=== PATIENT | male | born 1940 | race Hispanic/Latino ===

== ENCOUNTER 2017-09-27 16:46 | Inpatient (IN) | payer MEDICARE, OTHER ==
[~2017-09-27] VITALS: Ht 188 cm; Wt 106.8 kg
[~2017-09-27 16:46] MED LIST: ALBU6.7H IH; ASPI-1181 PO; CARB25DR OU; CARV6.25 PO; ERGOCALCIFEROL PO; ETOD300C13 PO; FLUTICASONE NASAL; FURO40TA5 PO; GABA-531 PO; HYDR-4068 PO; LISI2.5T2 PO; MONT10TA24 PO; MVIT PO; OMEP20CA10 PO; POLY17PO4 PO; PRAV80TA21 PO; PRED20TA3 PO; SPRIVA IH
[2017-09-27 17:22] LABS: BASOPHILS % (AUTO) 0.8 % (0.0-5.0); EOSINOPHILS % (AUTO) 5.9 % (0.0-8.0); HEMATOCRIT 37.2 % (42-54); LYMPHOCYTES % (AUTO) 17.5 % (21.0-51.0); MEAN CORPUSCULAR HEMOGLOBIN 31.2 pg (27.0-33.0); MEAN CORPUSCULAR HGB CONC 34.5 g/dL (32.0-36.0); MEAN CORPUSCULAR VOLUME 90.4 fL (79-99); MONOCYTES % (AUTO) 10.2 % (3.0-13.0); NEUTROPHILS % (AUTO) 65.6 % (40.0-77.0); NUCLEATED RED BLOOD CELLS 0.1 % (0.0-0.19); PLATELET COUNT (AUTO) 170 K/uL (130-400); RED BLOOD CELL COUNT(AUTO) 4.11 MIL/uL (4.50-6.20); RED CELL DISTRIBUTION WIDTH 14.7 % (11.0-15.5)
[2017-09-27 17:34] LABS: CREATININE 1.7 mg/dL (0.5-1.5); POTASSIUM 4.1 mmol/L (3.5-5.1)
[2017-09-27 17:36] LABS: INR 1.13 (0.85-1.15); PARTIAL THROMBOPLASTIN TIME 23.3 SEC (26.3-35.5); PROTHROMBIN TIME 11.6 SEC (9.6-11.6)
[2017-09-27 17:43] LABS: B-TYPE NATRIURETIC PEPTIDE 439 pg/mL (0-100)
[2017-09-27 17:47] LABS: ALBUMIN 3.6 g/dL (3.5-5.0); BILIRUBIN,TOTAL 2.6 mg/dL (0.2-1.0); CREATINE KINASE MB 2.2 ng/mL (0.5-3.6)
[2017-09-27 17:49] LABS: APPEARANCE,URINE Clear (CLEAR); BILIRUBIN,URINE Negative (NEGATIVE); COLOR,URINE Yellow (YELLOW); GLUCOSE, URINE (UA) Negative (NEGATIVE); KETONES,URINE Negative (NEGATIVE); LEUKOCYTE ESTERASE ,URINE Trace (NEGATIVE); NITRATE,URINE Negative (NEGATIVE); OCCULT BLOOD,URINE Negative (NEGATIVE); PH,URINE 5.5 (5.0-8.0); PROTEIN,URINE POS 1+ (NEGATIVE)
[2017-09-27 18:00] LABS: BACTERIA,URINE Few /HPF (None Seen); RBC,URINE None Seen /HPF (0-1)
[2017-09-27] MEDS ORDERED: VANCOMYCIN 1GM+NS 250ML 250 ML IV ONE (23:07)
[2017-09-27] MEDS ORDERED: ENOXAPARIN SODIUM 100 MG/1 ML SQ ONE (23:08)
[2017-09-28] VITALS (7 sets, daily range): BP systolic 110–141; BP diastolic 68–87
[2017-09-28] MEDS ORDERED: ONDANSETRON HCL MDV 20ML 2 MG/ML VIAL IV PRN (01:00)
[2017-09-28] MEDS ORDERED: ACETAMINOPHEN 325 MG TAB PO PRN ×4 (01:00→10:15)
[2017-09-28] MEDS ORDERED: HYDRALAZINE HCL 20 MG/ML VIAL IV PRN ×2 (01:00→10:15)
[2017-09-28] MEDS ORDERED: VANCOMYCIN PROTOCOL PER PHARMACY IV PRN (01:00)
[2017-09-28 01:53] LABS: CREATINE KINASE MB 1.6 ng/mL (0.5-3.6); TROPONIN I 0.07 ng/mL (0.00-0.06)
[2017-09-28 05:21] LABS: MEAN CORPUSCULAR HEMOGLOBIN 30.9 pg (27.0-33.0); MEAN CORPUSCULAR HGB CONC 33.9 g/dL (32.0-36.0); PLATELET COUNT (AUTO) 158 K/uL (130-400); RED BLOOD CELL COUNT(AUTO) 3.84 MIL/uL (4.50-6.20); RED CELL DISTRIBUTION WIDTH 14.5 % (11.0-15.5); WHITE BLOOD COUNT (AUTO) 5.7 K/uL (4.8-10.8)
[2017-09-28 05:30] LABS: CREATININE 1.4 mg/dL (0.5-1.5); POTASSIUM 3.7 mmol/L (3.5-5.1)
[2017-09-28 05:38] LABS: B-TYPE NATRIURETIC PEPTIDE 331 pg/mL (0-100)
[2017-09-28] MEDS: LEVOFLOXACIN 500 MG/D5W 100 ML 100 ML IV SCH ×2 (05:57→23:53)
[2017-09-28] MEDS ORDERED: COMPOUND IV REFRIGERATED 1 EACH IVSOLN MISC PRN (06:30)
[2017-09-28] MEDS ORDERED: ENOXAPARIN SODIUM 100 MG/1 ML SQ SCH (09:00)
[2017-09-28] MEDS ORDERED: ENOXAPARIN SODIUM 1 MG/KG SQ SCH (09:00)
[2017-09-28] MEDS: VANCOMYCIN 1.5 GM in SODIUM CHLORIDE 0.9% 250 ML IV SCH ×2 (09:00→20:45)
[2017-09-28] MEDS: FAMOTIDINE 20MG TAB 20 MG TAB PO SCH ×2 (10:07→20:46)
[2017-09-28] MEDS ORDERED: POTASSIUM CHLORIDE 10% ELIXIR 20 MEQ/15 ML UDCUP PO PRN (10:15)
[2017-09-28] MEDS ORDERED: ONDANSETRON HCL 4 MG/2 ML VIAL IV PRN (10:15)
[2017-09-28] MEDS ORDERED: GUAIFENESIN-DM 200/20 MG 10 ML PO PRN (10:15)
[2017-09-28] MEDS ORDERED: MORPHINE SULFATE 2 MG/ML 1ML SYG IV PRN (10:15)
[2017-09-28] MEDS ORDERED: POTASSIUM CHLORIDE 20MEQ/100ML 100 ML IV PRN (10:15)
[2017-09-28] MEDS ORDERED: ACETAMINOPHEN-CODEINE 300/30MG TAB PO PRN (10:15)
[2017-09-28] MEDS ORDERED: POTASSIUM CHLORIDE 20 MEQ ERTAB PO PRN (10:15)
[2017-09-28] MEDS ORDERED: LACTULOSE 20 GM/30 ML UDCUP PO PRN (10:15)
[2017-09-28] MEDS ORDERED: MAG HYDROX/AL HYDROX/SIMETH ES 30 ML SUSP UDCUP PO PRN (10:15)
[2017-09-28] MEDS ORDERED: NITROGLYCERIN 0.4 MG SL TAB SL PRN (10:15)
[2017-09-28] MEDS: APIXABAN 5 MG TABLET PO SCH ×2 (10:15→20:45)
[2017-09-28] MEDS ORDERED: LIDOCAINE HCL-MPF 1% 2ML VIAL IVP PRN (10:15)
[2017-09-28] MEDS ORDERED: ETODOLAC 300 MG PO PRN (15:30)
[2017-09-28] MEDS ORDERED: FLUT16H NASAL (15:34)
[2017-09-28] MEDS ORDERED: METO25TA6 PO (15:34)
[2017-09-28] MEDS: FUROSEMIDE 40 MG TABLET PO SCH (20:46)
[2017-09-28] MEDS: GABAPENTIN 300 MG CAPSULE PO SCH (20:46)
[2017-09-28] MEDS: ATORVASTATIN CALCIUM 10 MG TABLET PO SCH (20:46)
[2017-09-29 03:49] VITALS: BP 126/79
[2017-09-29 04:55] LABS: HEMATOCRIT 37.7 % (42-54); MEAN CORPUSCULAR HGB CONC 35.1 g/dL (32.0-36.0); PLATELET COUNT (AUTO) 164 K/uL (130-400); RED BLOOD CELL COUNT(AUTO) 4.14 MIL/uL (4.50-6.20); RED CELL DISTRIBUTION WIDTH 14.7 % (11.0-15.5); WHITE BLOOD COUNT (AUTO) 6.6 K/uL (4.8-10.8)
[2017-09-29 05:03] LABS: CREATININE 1.5 mg/dL (0.5-1.5); POTASSIUM 3.9 mmol/L (3.5-5.1)
[2017-09-29 07:00] VITALS: BP 100/59
[2017-09-29] MEDS: POLYETHYLENE GLYCOL 3350 17 GM POWD.PACK PO SCH (08:34)
[2017-09-29] MEDS: PANTOPRAZOLE SODIUM 40 MG TABLET.DR PO SCH (08:34)
[2017-09-29] MEDS: FUROSEMIDE 40 MG TABLET PO SCH ×2 (08:35→16:54)
[2017-09-29] MEDS: LISINOPRIL 2.5 MG TABLET PO SCH (08:35)
[2017-09-29] MEDS: PREDNISONE 10 MG TABLET PO SCH (08:36)
[2017-09-29] MEDS: ASPIRIN 81 MG EC TAB PO SCH (08:36)
[2017-09-29] MEDS: FAMOTIDINE 20MG TAB 20 MG TAB PO SCH ×2 (08:36→22:54)
[2017-09-29] MEDS: APIXABAN 5 MG TABLET PO SCH (08:36)
[2017-09-29] MEDS: VANCOMYCIN 1.5 GM in SODIUM CHLORIDE 0.9% 250 ML IV SCH (08:37)
[2017-09-29] MEDS: ALBUTEROL SULFATE 0.083% 2.5 MG/3 ML INH IH SCH (09:18)
[2017-09-29] MEDS ORDERED: SODIUM CHLORIDE 0.9% 1000ML 1,000 ML IV SCH (10:11)
[2017-09-29 11:00] VITALS: BP 105/67
[2017-09-29] MEDS ORDERED: IOPAMIDOL-370 100 ML VIAL IV ONE (13:30)
[2017-09-29] MEDS ORDERED: ACETYLCYSTEINE 20% 200MG/ML 4ML VIAL PO SCH (14:00)
[2017-09-29 16:33] VITALS: BP 138/74
[2017-09-29] MEDS ORDERED: ACETYLCYSTEINE 600 MG CAPSULE PO SCH (17:15)
[2017-09-29] MEDS: FLUTICASONE PROPIONATE 50MCG/SPRAY 16 GM BOTTLE EN SCH (17:31)
[2017-09-29 19:50] VITALS: BP 100/48
[2017-09-29] MEDS: ATORVASTATIN CALCIUM 10 MG TABLET PO SCH (22:54)
[2017-09-29] MEDS: GABAPENTIN 300 MG CAPSULE PO SCH (22:54)
[2017-09-29] MEDS: METOPROLOL TARTRATE 25 MG TAB PO SCH (22:54)
[2017-09-29 23:34] VITALS: BP 115/65
[2017-09-30] MEDS: LEVOFLOXACIN 500 MG/D5W 100 ML 100 ML IV SCH (01:17)
[2017-09-30 03:50] VITALS: BP 127/80
[2017-09-30 04:18] LABS: HEMATOCRIT 36.3 % (42-54); MEAN CORPUSCULAR HEMOGLOBIN 31.3 pg (27.0-33.0); MEAN CORPUSCULAR HGB CONC 34.3 g/dL (32.0-36.0); MEAN CORPUSCULAR VOLUME 91.1 fL (79-99); PLATELET COUNT (AUTO) 158 K/uL (130-400); RED BLOOD CELL COUNT(AUTO) 3.98 MIL/uL (4.50-6.20); RED CELL DISTRIBUTION WIDTH 14.7 % (11.0-15.5); WHITE BLOOD COUNT (AUTO) 7.6 K/uL (4.8-10.8)
[2017-09-30 04:34] LABS: CREATININE 1.4 mg/dL (0.5-1.5); POTASSIUM 3.9 mmol/L (3.5-5.1)
[2017-09-30 05:21] LABS: B-TYPE NATRIURETIC PEPTIDE 366 pg/mL (0-100)
[2017-09-30 07:00] VITALS: BP 122/77
[2017-09-30] MEDS: ALBUTEROL SULFATE 0.083% 2.5 MG/3 ML INH IH SCH (07:21)
[2017-09-30] MEDS ORDERED: AMOX-426 PO (10:00)
[2017-09-30] MEDS: LISINOPRIL 2.5 MG TABLET PO SCH (10:29)
[2017-09-30] MEDS: METOPROLOL TARTRATE 25 MG TAB PO SCH (10:29)
[2017-09-30] MEDS: FUROSEMIDE 40 MG TABLET PO SCH (10:29)
[2017-09-30] MEDS: POLYETHYLENE GLYCOL 3350 17 GM POWD.PACK PO SCH (10:29)
[2017-09-30] MEDS: PANTOPRAZOLE SODIUM 40 MG TABLET.DR PO SCH (10:29)
[2017-09-30] MEDS: PREDNISONE 10 MG TABLET PO SCH (10:32)
[2017-09-30] MEDS: ASPIRIN 81 MG EC TAB PO SCH (10:32)
[2017-09-30] MEDS: FAMOTIDINE 20MG TAB 20 MG TAB PO SCH (10:33)
[2017-09-30] MEDS: FLUTICASONE PROPIONATE 50MCG/SPRAY 16 GM BOTTLE EN SCH (10:33)
[2017-09-30 11:00] VITALS: BP 116/79
== END 2017-09-30 13:40 | disposition home or self-care (01) | DRG 683 ==
LOC: EDH 16:46 → EDHIP 22:58 → 2AH 09-28 01:08
PROVIDERS: ADMIT Internal Medicine; ATTEND Internal Medicine
DX: N17.9 Acute kidney failure, unspecified (principal); L03.115 Cellulitis of right lower limb; I42.9 Cardiomyopathy, unspecified; I50.22 Chronic systolic (congestive) heart failure; I11.0 Hypertensive heart disease with heart failure; J43.9 Emphysema, unspecified; N39.0 Urinary tract infection, site not specified; M19.90 Unspecified osteoarthritis, unspecified site; G47.33 Obstructive sleep apnea (adult) (pediatric); I25.10 Atherosclerotic heart disease of native coronary artery without angina pectoris; K59.00 Constipation, unspecified; R79.1 Abnormal coagulation profile; Z96.653 Presence of artificial knee joint, bilateral
CPT/HCPCS: 36415; 71045; 71046; 71275; 78580; 80048; 80053; 81001; 82550; 82553; 83874; 83880; 84484; 85025; 85027; 85378; 85610; 85730; 93005; 93306; 93970; 94640; 94664; 99291; A9540; J1650; J1956; J3370; J7030; J7512; J7608; Q9967

== ENCOUNTER 2019-03-04 16:57 | Inpatient (IN) | payer OTHER, MEDICARE | END 2019-03-07 19:18 | disposition home or self-care (01) | LOC: EDH 16:57 → EDHIP 20:51 → 3DH 23:30 | DX: J18.9 Pneumonia, unspecified organism (principal); J44.1 Chronic obstructive pulmonary disease with (acute) exacerbation; J44.0 Chronic obstructive pulmonary disease with (acute) lower respiratory infection; R09.02 Hypoxemia; I48.91 Unspecified atrial fibrillation ==

== ENCOUNTER 2019-05-19 17:00 | Emergency (ER) | payer OTHER ==
[~2019-05-19 17:00] MED LIST changes: +ACET-66 PO; +ALBU2.5V2 IH; -ALBU6.7H IH; +ALBU6.7H9 IH; +ALBU8.5H8 IH; -CARB25DR OU; +CEPH500C2 PO; +ERGO500014 PO; -ERGOCALCIFEROL PO; -ETOD300C13 PO; +FLUT15.812 NS; -FLUTICASONE NASAL; -GABA-531 PO; -HYDR-4068 PO; -LISI2.5T2 PO; -MONT10TA24 PO; -MVIT PO; +NITR0.4T50 SL; +OMEP-50 PO; -OMEP20CA10 PO; -PRAV80TA21 PO; +PRED10TA3 PO; -PRED20TA3 PO; +SENN8.6T52 PO; -SPRIVA IH; +TERB30CR13 TP
[2019-05-19] MEDS ORDERED: IPRATROPIUM/ALBUTEROL SULFATE 3 ML SOLUTION IH ONE ×2 (17:28→21:33)
[2019-05-19 17:46] LABS: EOSINOPHILS % (AUTO) 1.9 % (0.0-8.0); HEMATOCRIT 39.7 % (42-54); LYMPHOCYTES % (AUTO) 6.5 % (21.0-51.0); MEAN CORPUSCULAR HEMOGLOBIN 31.4 pg (27.0-33.0); MEAN CORPUSCULAR HGB CONC 33.7 g/dL (32.0-36.0); MEAN CORPUSCULAR VOLUME 93.1 fL (79-99); MONOCYTES % (AUTO) 19.8 % (3.0-13.0); NEUTROPHILS % (AUTO) 70.8 % (40.0-77.0); NUCLEATED RED BLOOD CELLS 0.1 % (0.0-0.19); PLATELET COUNT (AUTO) 133 K/uL (130-400); RED BLOOD CELL COUNT(AUTO) 4.26 MIL/uL (4.50-6.20); RED CELL DISTRIBUTION WIDTH 14.5 % (11.0-15.5); WHITE BLOOD COUNT (AUTO) 4.7 K/uL (4.8-10.8)
[2019-05-19 18:01] LABS: INR 1.22 (0.85-1.15); PARTIAL THROMBOPLASTIN TIME 27.5 SEC (26.3-35.5); PROTHROMBIN TIME 12.7 SEC (9.6-11.6)
[2019-05-19 18:02] LABS: CREATININE 1.5 mg/dL (0.5-1.5); POTASSIUM 4.2 mmol/L (3.5-5.1)
[2019-05-19 18:21] LABS: ALBUMIN 3.4 g/dL (3.5-5.0); BILIRUBIN,TOTAL 1.7 mg/dL (0.2-1.0); TOTAL PROTEIN, SERUM 6.6 g/dL (6.0-8.3)
[2019-05-19 18:28] LABS: APPEARANCE,URINE Clear (CLEAR); BILIRUBIN,URINE Negative (NEGATIVE); COLOR,URINE Yellow (YELLOW); GLUCOSE, URINE (UA) Negative (NEGATIVE); KETONES,URINE Negative (NEGATIVE); LEUKOCYTE ESTERASE ,URINE Trace (NEGATIVE); NITRATE,URINE Negative (NEGATIVE); OCCULT BLOOD,URINE Negative (NEGATIVE); PROTEIN,URINE Negative (NEGATIVE)
[2019-05-19 18:41] LABS: TROPONIN I 0.08 ng/mL (0.00-0.06)
[2019-05-19 18:43] LABS: RAPID GROUP A STREP NEGATIVE (NEGATIVE)
[2019-05-19 18:48] LABS: BACTERIA,URINE Rare /HPF (None Seen); MUCUS,URINE Few LPF (None Seen)
[2019-05-19] MEDS ORDERED: METHYLPREDNISOLONE SOD SUCC 40MG/ML 1ML ONE (21:34)
[2019-05-19] MEDS ORDERED: CEFTRIAXONE SODIUM 1 GM ONE (21:34)
[2019-05-19] MEDS ORDERED: FUROSEMIDE 10 MG/ML 4ML VIAL ONE (23:36)
[2019-05-19] MEDS ORDERED: AZITHROMYCIN 250 MG TABLET PO ONE (23:36)
== END 2019-05-20 00:05 | disposition home or self-care (01) ==
LOC: EDH 17:00
DX: J44.9 Chronic obstructive pulmonary disease, unspecified (principal); I11.0 Hypertensive heart disease with heart failure; I50.43 Acute on chronic combined systolic (congestive) and diastolic (congestive) heart failure; I25.10 Atherosclerotic heart disease of native coronary artery without angina pectoris
CPT/HCPCS: 36415; 71046; 80053; 81001; 82550; 83605; 83874; 83880; 84145; 84484 ×3; 85025; 85610; 85730; 87040 ×2; 87804 ×2; 87880; 93005 ×2; 94640 ×2; 96374; 96375; 99285; J0696; J1940; J2920